=== PATIENT | female | born 1945 | race Hispanic/Latino ===

== ENCOUNTER 2017-06-03 12:19 | Outpatient (CLI) | payer MEDICARE, BC ==
[2017-06-03 13:55] LABS: Hematocrit 38.7 % (36.0-47.0); Mean Platelet Volume 6.4 fL (7.4-10.4)
== END 2017-06-03 12:20 | disposition home or self-care (01) ==
LOC: LABBT 12:19
PROVIDERS: ATTEND Obstetrics & Gynecology
DX: Z01.812 Encounter for preprocedural laboratory examination (principal); N81.6 Rectocele
CPT/HCPCS: 85027; 86850; 86900; 86901; 93005; 93010

== ENCOUNTER 2017-06-08 07:06 | Observation (INO) | payer MEDICARE, BC ==
--- NOTE | 2017-06-03 13:03 | HP ---
She is scheduled for surgery on 06/08/2017 HISTORY OF PRESENT ILLNESS: Ms. Lucas is a 71-year-old female who has been having i ncreasing problems related to a rectocele of vagina. She is having issues with needing to splint to have bowel movements and also fecal swelling due to incomplete evacuation. She has no current urinar y tract, genuine stress incontinence issues or any other pelvic defect complaints. PAST MEDICAL HISTORY: Chronic hypertension, hyperlipidemia, and allergic rhinitis. PAST SURGICAL HISTORY: She has had a previous surgical history including tonsillectomy, carpal tunne l repair and knee replacement. CURRENT MEDICATIONS: Alendronate 70 mg weekly, Cymbalta 60 mg daily, fluticasone nasal spray 2 spray s nasally daily, losartan/hydrochlorothiazide 100/25 mg p.o. daily, Pravachol 20 mg daily. ALLERGIES: CODEINE. SOCIAL HISTORY: Nonsmoker, nondrinker. FAMILY HISTORY: Noncontributory. PHYSICAL EXAMINATION: VITAL SIGNS: Her blood pressure is 120/80, pulse 86, respirations 16, height 62 inches, weight 218 p ounds with a BMI of 39.9. HEENT: Within normal limits. CHEST: Clear to auscultation. HEART: Regular rate and rhythm. S1, S2 heart sounds, no murmurs, rubs or gallops. ABDOMEN: Soft, nontender, nondistended with no palpable masses. PELVIC: Vulva and vagina had no lesions. She does have a grade 3 rectocele noted. No significant a nterior vault prolapse or uterine prolapse seen. Cervix had no lesions. Uterus was small and nonten sherwin. Adnexa nontender with no masses. ASSESSMENT: This is a 71-year-old female with symptomatic grade 3 rectocele. PLAN: Posterior repair. Risks and benefits of procedure have been discussed in detail and set for s urgery on 06/08/2017.
[2017-06-03 13:05] VITALS: BMI 41.0
[2017-06-08] MEDS ORDERED: CEFAZOLIN/Water 2 GM/20 ML SYRINGE ONE ×2 (07:39→08:59)
[2017-06-08] MEDS ORDERED: Morphine 4 MG/ML Carpuject ONE (08:35)
[2017-06-08] MEDS ORDERED: Fentanyl 100 MCG/2 ML VIAL ONE (08:35)
[2017-06-08] MEDS ORDERED: Lidocaine 1% w/Epinephrine 1:200K 30 ML VIAL ONE (08:46)
--- NOTE | 2017-06-08 11:23 | OP ---
DATE OF PROCEDURE: 06/08/2017 PREOPERATIVE DIAGNOSIS: A 71-year-old female with grade 3 rectocele, symptomatic. POSTOPERATIVE DIAGNOSIS: A 71-year-old female with grade 3 rectocele, symptomatic. PROCEDURE PERFORMED: Posterior repair. SURGEON: Gracie Hernandez M.D. HEAVY FORGER SURGEON: Alexis Allan M.D. ANESTHESIA: General. ESTIMATED BLOOD LOSS: 25 mL COMPLICATIONS: None. COUNTS: Correct x2. ANTIBIOTICS: Two grams Ancef manager distribution to the operating room. PATHOLOGY: None. FINDINGS: 1. Grade 3 rectocele defect initially noted on exam under anesthesia with reduction of hernia postop eratively. 2. No evidence of suture placement through the rectal mucosa post-procedure rectal check. DISPOSITION: To the recovery room stable. DESCRIPTION OF OPERATIVE PROCEDURE: The patient previously received informed consent in regards to jv llanes. She was taken back to the operating room where she received a general anesthetic agent witho ut complications, placed in the dorsal lithotomy position with the use of George stirrups. She was pr epped and draped in usual sterile fashion. Roger catheter was placed. Exam under anesthesia was per formed with the previously mentioned findings. At this time, two Allis clamps were placed in the 5 a nd 7 o'clock position. The posterior vaginal mucosa was infiltrated with 1% lidocaine with epinephri ne towards the reflection of the cervix. A midline incision was made in the posterior introitus del rio ied out 1.5 cm from the cervix. Allis clamps were placed on the edges of the posterior vaginal mucos a incision sites. The rectum and the endopelvic fascia was then dissected sharply and bluntly from t he rectal mucosa, reducing the rectocele defect. The most proximal portion of the endopelvic fascia was then isolated and sutures were placed with 0 Vicryl suture, repairing the rectocele defect. Inte rrupted wljqxk-rq-yrhuk sutures of 0 Vicryl then placed starting proximally and working distally towa rds the vaginal introitus reducing the rectocele defect. This has been performed and additional sutu res were placed reinforcing of reapproximation the fascia in the midline for more stability and the r epair line. At this time, the uppermost portion of the posterior vaginal mucosa was closed with 2-0 Vicryl incorporating some of the endopelvic fascia reading the space. Interrupted [id number] ht stitches were carried down in this fashion for hemostasis of the posterior vaginal mucosa. Rectal exam was then performed and no evidence of any suture placement through the rectal mucosa noted and the defect repair appeared adequate. A moistened Kerlix packing was placed and the patient was awake saadia from anesthesia and transferred to the recovery room in stable condition.
[2017-06-08] MEDS ORDERED: Ibuprofen 800 MG TAB PO PRN (14:04)
[2017-06-08] MEDS ORDERED: Ondansetron HCl/PF 4 MG/2 ML Vial IVP PRN (14:04)
[2017-06-08] MEDS ORDERED: Acetaminophen 500 MG TAB PO PRN (14:04)
[2017-06-08] MEDS ORDERED: Morphine PF 1 MG/ML SYR IV PRN (14:05)
[2017-06-08] MEDS ORDERED: MORPHINE 10 MG/ML SYRINGE IV PRN (14:06)
[2017-06-08] MEDS: Sodium Chloride 0.9% 1,000 ML IV SCH ×2 (14:09→23:15)
[2017-06-08 15:13] LABS: Hematocrit 35.5 % (36.0-47.0); Mean Platelet Volume 6.3 fL (7.4-10.4); Red Blood Cell (RBC) Count 3.73 mill/uL (4.20-5.40); White Blood Cell (WBC) Count 21.5 thou/uL (4.8-10.8)
[2017-06-08] MEDS ORDERED: Hydrocortisone Sod Succ/PF 100 mg/2 ml Vial IVP SCH (15:15)
[2017-06-08 15:28] LABS: Band 16 % (5-11); Neutrophil 69 % (42-75); Polychromasia SLIGHT = 2-3 cells (100X) (0-2/hpf); Reactive Lymphocytes 1 % (0-10)
[2017-06-08 15:36] LABS: ALT (SGPT) 10 U/L (8-55); AST (SGOT) 13 U/L (5-34); Alkaline Phosphatase 73 U/L (40-150); Anion Gap 13 mmol/L (10-20); BUN (Urea Nitrogen) 14 mg/dL (9.8-20.1); Bilirubin, Total 0.5 mg/dL (0.2-1.2); Calc. Creatinine Clearance 81 mL/min (70-130); Calcium 8.5 mg/dL (7.8-10.44); Carbon Dioxide 25 mmol/L (23-31); Chloride 102 mmol/L (98-107); Estimated GFR-MDRD 54; Globulin 2.9 g/dL (2.4-3.5); Protein, Total 6.2 g/dL (6.0-8.3)
[2017-06-08 15:41] LABS: Troponin I Less than 0.010 ng/mL (< 0.028)
[2017-06-08] MEDS ORDERED: Insulin Regular 300 UNITS/3 ML VIAL SC PRN (16:06)
[2017-06-08] MEDS ORDERED: Dextrose 5% in Water 1,000 ML IV PRN (16:06)
[2017-06-08] MEDS ORDERED: Dextrose 50% Abboject 50 ML SYRINGE SLOW IVP PRN (16:06)
[2017-06-08] MEDS ORDERED: diphenhydrAMINE 50 MG/ML VIAL ONE (16:22)
[2017-06-08] MEDS ORDERED: Ketorolac Tromethamine 30 MG/ML VIAL ONE (16:22)
[2017-06-08] MEDS ORDERED: PHENYLEPHRINE-NS 100 MCG/ML 10 ML SYRINGE ONE (16:22)
[2017-06-08] MEDS ORDERED: Ondansetron HCl/PF 4 MG/2 ML Vial ONE (16:22)
[2017-06-08] MEDS ORDERED: Metoclopramide HCl 10 MG/2 ML VIAL ONE (16:22)
[2017-06-08] MEDS ORDERED: Lidocaine 1% PF 5 ML VIAL ONE (16:22)
[2017-06-08] MEDS ORDERED: Propofol 200 MG/20 ML VIAL ONE (16:22)
--- NOTE | 2017-06-08 16:33 | PRG ---
DATE OF SERVICE: 06/08/2017 TIME OF DICTATION: 15:53 p.m. Recently ludwin mederos was called in the room for low blood pressures for which I was called to evaluate. At the time I was entering the room, there were already many people there to assist with evaluation and resuscitative measures as indicated. Patient was lying supine in her bed, appeared to be in no acute distress, was alert and oriented, and cooperative. Patient declined any chest pain, any significant shortness of breath or pain. She does reports that she falls asleep easily. The patient is immediately postop a vaginal wall repair. I spoke with Dr. Hernandez who reports that the surgery was uncomplicated with minimal blood loss. Upon entry to the room, patient had blood pressures in the 60s/40s. IV fluids were being bolused and we milagros blood for cardiac enzymes, BNP, CBC and CMP. Chest x-ray was ordered. Pelvic ultrasound was ordered for possibility of concealed hematoma given the nature of her surgery. Patient reports that in 2 previous surgeries, she remembers having a transient period of very low blood pressures as well. She denies any history of Zachariah's disease or any symptoms thereabouts. She does take prednisone daily, but reports only 1 mg 3 times a day, confirmed the dosage several times by mouth verbally from the patient, but the patient does not have her medications currently with her. PHYSICAL EXAMINATION: VITAL SIGNS: Repeat blood pressures after IV bolus came up into the 90 systolic , 91/46. Her pulse is in the 80s, temperature 98.2, respiratory rate is 17, satting 93% on 2 liters nasal cannula. LUNGS: Clear. HEART: Difficult to evaluate due to habitus. ABDOMEN: Soft and obese. RECTAL: On vaginal exam, the patient is noted to have a dry kandi pad with a packing that was also palpated dry, did not have any bleeding visible. Patient is not having any unusual pain. LABORATORY STUDIES: White count 21.5, hemoglobin 11.2, hematocrit 35.5, platelets of 189,000. Her neutrophil percentage is 69. Sodium is 135, potassium 4.6, chloride 102, BUN is 14, creatinine 1.02, glucose is 146. LFTs within normal limits. Troponin is less than 0.010. BNP is 48. CK-MB 1.2. All within normal limits. EKG showed sinus rhythm. We are awaiting the final results of the chest x-ray. Preliminary review by myself did not show any signs of cardiomegaly. Pelvic ultrasound is pending, looking for concealed hematoma. ASSESSMENT AND PLAN: The patient is a 71-year-old female who is immediate postop a vaginal wall repair by Dr. Hernandez with an uncomplicated surgical course PAST MEDICAL HISTORY: Significant for diabetes and rheumatoid arthritis. She has no acute findings. At this time, concerning for any acute cardiac event or PE. We have bolus to a liter and a half of fluid. Her pressures at this time are stable. We will be monitoring her urine output and patient has been given 50 mg of hydrocortisone with an order of 25 mg every 8 hours during the course of her stay. Patient is stable at this time. I have given report to her primary LINEMAN Dr. Hernandez who will be coming to see her after she is done with clinic. We will reevaluate later this afternoon. addendum. Upon reevaluation pt remains stable, alert, talkative and without distress. All finding were negative for acute cardiac event, blood loss, electrolyte abnormality. vital signs stable and normal. MTDD
--- NOTE | 2017-06-08 17:09 | RAD ---
PORTABLE CHEST 1 VIEW: Date: 06/08/17 Time: 1519 hours HISTORY: Code Green. FINDINGS/IMPRESSION: The heart is enlarged. The lungs are well expanded without lobar consolidation, pneumothorax, christian p ulmonary edema, or large effusions. POS: [facility]
--- NOTE | 2017-06-08 18:09 | EKG ---
Test Reason : CODE GREEN Blood Pressure : / mmHG Vent. Rate : 102 BPM Atrial Rate : 102 BPM P-R Int : 154 ms QRS Dur : 082 ms QT Int : 356 ms P-R-T Axes : 033 061 001 degrees QTc Int : 463 ms Sinus tachycardia Otherwise normal ECG When compared with ECG of 03-JUN-2017 13:11, (Unconfirmed) Nonspecific T wave abnormality no longer evident in Anterior leads Confirmed by SONDRA CERVANTES ([id number]) on 06/08/2017 6:09:45 PM Referred By: BYRON Confirmed By:SONDRA CERVANTES
--- NOTE | 2017-06-08 18:41 | ULT ---
PELVIC ULTRASOUND LIMITED: History: Hematoma post-surgery. Patient with history of pelvic pain. Technique: Multiple longitudinal and transverse images of the pelvis obtained using a multihertz curv ilinear transabdominal transducer. Real-time, color flow, and spectral waveform doppler analysis was used to evaluate the pelvis. FINDINGS: The uterus measures 8.7 x 3.4 x 5.5 cm. No definite evidence of uterine abnormality is seen. The left ovary is not visualized. The right ovary is seen and measures 2.1 x 2.7 x 3.8 cm. Normal blood flow is seen in the right ovary . There appears to be a Roger type catheter in the bladder. IMPRESSION: No uterine abnormality seen. POS: [facility]
[2017-06-08] MEDS: Hydrocortisone Sod Succ/PF 100 mg/2 ml Vial IVP SCH (23:03)
[2017-06-09] MEDS: Hydrocortisone Sod Succ/PF 100 mg/2 ml Vial IVP SCH (05:12)
[2017-06-09] MEDS: Sodium Chloride 0.9% 1,000 ML IV SCH (06:46)
[2017-06-09 08:28] VITALS: BP 164/75; TEMP 97.8
== END 2017-06-09 10:16 | disposition home or self-care (01) ==
LOC: SDC 07:06 → 3SE 10:45
PROVIDERS: ADMIT Obstetrics & Gynecology; ATTEND Obstetrics & Gynecology
PROC: 0JQC0ZZ Repair Pelvic Region Subcutaneous Tissue and Fascia, Open Approach (ICD-10-PCS; principal; 2017-06-08)
DX: N81.6 Rectocele (principal); I10 Essential (primary) hypertension; E78.5 Hyperlipidemia, unspecified; J30.9 Allergic rhinitis, unspecified; Z91.041 Radiographic dye allergy status; Z88.5 Allergy status to narcotic agent; Z98.42 Cataract extraction status, left eye; Z79.899 Other long term (current) drug therapy; Z98.41 Cataract extraction status, right eye; Z90.49 Acquired absence of other specified parts of digestive tract; Z96.653 Presence of artificial knee joint, bilateral; Z98.890 Other specified postprocedural states
CPT/HCPCS: 57250; 71010; 76857; 80053; 82553; 82962 ×2; 83880; 84484; 85025; 93005; 96374; 96376 ×2; G0378; 36416; 93010; A4216; J0131; J1200; J1720; J1885; J2001; J2270; J2405; J2704; J2765; J3010

== ENCOUNTER 2017-07-14 15:01 | Outpatient (CLI) | payer BC | END 2017-07-14 15:02 | disposition home or self-care (01) | LOC: DTY/OP 15:01 | PROVIDERS: ATTEND Surgery | DX: E78.5 Hyperlipidemia, unspecified (principal); E11.9 Type 2 diabetes mellitus without complications; G47.30 Sleep apnea, unspecified; I10 Essential (primary) hypertension | CPT/HCPCS: 97802 ==

== ENCOUNTER 2017-12-31 11:01 | Outpatient (CLI) | payer MEDICARE, BC | END 2017-12-31 11:02 | disposition home or self-care (01) | LOC: BICMAMMO 11:01 | PROVIDERS: ATTEND Specialist | DX: Z12.31 Encounter for screening mammogram for malignant neoplasm of breast (principal); R92.1 Mammographic calcification found on diagnostic imaging of breast | CPT/HCPCS: 77063; 77067 ==

== ENCOUNTER 2018-10-07 16:48 | Observation (INO) | payer MEDICARE, BC ==
[2018-10-07 17:19] LABS: #Basophils 0.1 thou/uL (0.0-0.2); #Eosinphils 0.2 thou/uL (0.0-0.7); #Monocytes 0.8 thou/uL (0.11-0.59); #Neutrophils 3.6 thou/uL (1.40-6.50); %Eosinophils 2.8 % (0.0-10.0); %Lymphocytes 39.4 % (21.0-51.0); %Monocytes 10.1 % (0.0-10.0); %Neutrophils 46.7 % (42.0-75.0); Hemoglobin 13.5 g/dL (12.0-16.0); Mean Corpuscular HGB CONC 32.5 g/dL (32.0-36.0); Mean Corpuscular Hemoglobin 33.5 pg (27.0-31.0); Mean Platelet Volume 6.7 fL (7.4-10.4); Platelet Count 132 thou/uL (130-400); RBC Distribution Width 12.9 % (11.5-14.5); Red Blood Cell (RBC) Count 4.04 mill/uL (4.20-5.40); White Blood Cell (WBC) Count 7.6 thou/uL (4.8-10.8)
[2018-10-07 17:25] LABS: PTT 24.1 SEC (22.9-36.1); Prothrombin Time 13.3 SEC (12.0-14.7)
--- NOTE | 2018-10-07 17:28 | CT ---
FHead CT without contrast 10/07/2018: COMPARISON: 08/05/2011 HISTORY: Stroke alert, syncope, fall TECHNIQUE: Axial CT imaging at 5 mm intervals from vertex through skull base without contrast FINDINGS: The imaged paranasal sinuses and mastoid air cells well-aerated. No displaced calvarial fra cture. No intracranial hemorrhage, midline shift, mass effect, or ventricular enlargement. Multifocal periventricular, deep, and subcortical white matter hypodensity, evidence of small vessel disease.A punctate focus of calcification is seen on image 6 on the left which could represent vascular calcifi cation in the region of proximal M2 branches. IMPRESSION: Stable head CT. Small vessel disease noted. No intracranial hemorrhage. Results called to Dr. Tapia at 5:24 PM 10/07/2018. If there is clinical concern for an acute infarct ion, brain MRI is advised. If there is clinical concern for intra-arterial thrombus, CT angiogram of the head recommended.
[2018-10-07 17:35] LABS: ALT (SGPT) Less than 7 U/L (8-55); AST (SGOT) 16 U/L (5-34); Albumin 3.8 g/dL (3.4-4.8); Alkaline Phosphatase 56 U/L (40-150); Anion Gap 12 mmol/L (10-20); BUN (Urea Nitrogen) 15 mg/dL (9.8-20.1); Bilirubin, Total 0.3 mg/dL (0.2-1.2); Calc. Creatinine Clearance 0 mL/min (70-130); Calcium 8.9 mg/dL (7.8-10.44); Carbon Dioxide 30 mmol/L (23-31); Chloride 102 mmol/L (98-107); Estimated GFR-MDRD 62; Globulin 2.9 g/dL (2.4-3.5); Glucose 109 mg/dL (83-110); Potassium 4.1 mmol/L (3.5-5.1); Protein, Total 6.7 g/dL (6.0-8.3); Sodium 140 mmol/L (136-145)
--- NOTE | 2018-10-07 17:41 | RAD ---
FPortable chest radiograph: 10/07/2018 COMPARISON: 06/03/2010 HISTORY:Hypertension, collapse, pain FINDINGS: Stable prominence of the cardiac silhouette. Perihilar prominence is noted, suggesting stab le vascular enlargement. There is no pneumothorax or large volume pleural effusion. No lobar consolid ation or alveolar edema. Mild pulmonary vascular congestion noted in the perihilar regions. IMPRESSION: Pulmonary vascular congestion with no focal consolidation or alveolar edema. If symptoms persist, follow-up PA and lateral imaging of the chest recommended.
[2018-10-07] MEDS ORDERED: Aspirin Chewable 81 MG TAB ONE (18:55)
[2018-10-07] MEDS ORDERED: Acetaminophen 325 MG TAB PO PRN (23:03)
[2018-10-07] MEDS ORDERED: Insulin Regular 300 UNITS/3 ML VIAL SC PRN (23:07)
[2018-10-08 00:01] LABS: Troponin I Less than 0.010 ng/mL (< 0.028)
[2018-10-08 00:12] VITALS: BMI 37.0
--- NOTE | 2018-10-08 02:29 | HP ---
CHIEF COMPLAINT ON ADMISSION: Syncope. HISTORY OF PRESENT ILLNESS: The patient is a 73-year-old female who states along with her spouse that she felt unusual since early this morning. She could not put her finger on any specific thing, only that she did not feel right. She was excessively sleepy through the day and tired and then after visiting with her sister, she was getting out of the car, had to reach for her cane, and simply fell backwards. She states that she never lost consciousness and her agrees that once he looked over and talked with her, she was coherent and was alert when he was speaking with her, however, she does not have any memory of her fall. She fell mostly on the right side and still has some right-sided soreness in her shoulder , neck area, and down her right arm. She denies any history of chest pain, shortness of breath. No seizure activity. She is certain that she did not take her medicine incorrectly this day, but has been raises a concern for that issue. There is concern that there may be a cardiac arrhythmia involved and so she is admitted to go to telemetry and watch for such. PAST MEDICAL HISTORY: Significant for hypothyroidism, Parkinson disease, depression, tsh-rzcrmkc-sikszbamw diabetes mellitus type 2, bipolar psychiatric disorder, hypertension, and environmental allergies. She also has dyslipidemia and arthritis, and osteopenia. PAST SURGICAL HISTORY: Includes bilateral knee replacement, bilateral carpal tunnel release, Lap-Band surgery in 2010 and Lap-Band removal in 2011, cholecystectomy , and tonsillectomy. PSYCHIATRIC HISTORY: As mentioned above, includes bipolar disorder. SOCIAL HISTORY: She is . Denies alcohol or drug use, and has never smoked. She lives with her . ALLERGIES: HER ALLERGIES ARE TO CODEINE, IODINE, TRAMADOL, AND ZUCCHINI. MEDICATIONS: At the time of admission include; 1. Levothyroxine 75 mcg daily. 2. Sinemet 10/100 three tabs q.a.m. 3. Duloxetine 60 mg one p.o. daily. 4. Prednisone 1 mg taken three times a day. 5. Farxiga 5 mg once a day. 6. Divalproex 500 mg three tabs taken once a day. 7. Boniva 150mg q month. 8. Terazosin 5 mg once a day. 9. Vitamin D3 1000 units daily. 10. Vitamin B12 100 mcg or 5000 international units daily. 11. Aspirin 81 mg daily. 12. Goddard-3 OTC capsule once a day. 13. Zyrtec 10 mg once a day. REVIEW OF SYSTEMS: GENERAL: Admits to overall malaise and weakness. Denies fever, chills, or cough. HEENT: Denies any sores or lesions in the ear, nose, or throat with no drainage from any of these. CHEST: Denies shortness of breath or cough. CARDIOVASCULAR: Denies chest pain or palpitations. ABDOMEN: Did have some nausea early in the morning, but no vomiting or diarrhea. : Denies dysuria, frequency, pain, blood in urine or stool. EXTREMITIES: There is mild lower extremity edema. Otherwise, normal range of motion demonstrated. No clubbing, cyanosis, or edema. NEUROLOGIC: Cranial nerves are intact. Gait and cerebellar function are slowed , but appropriate. Sensory exam is grossly intact. Mental status shows slightly slowed mentation. Cranial nerves are intact. Deep tendon reflexes are 1 bilaterally. Gordon Stroke Scale was at 0. SKIN: No acute rashes or lesions. PHYSICAL EXAMINATION: At the time of admission; VITAL SIGNS: Blood pressure 157/91, pulse is 80, respirations 17, temperature 97.9. Pain scale at 7, 100% room O2 on room air. She has a GCS of 15. NIHSS is zero. GENERAL: This is an obese, oriented, cooperative, alert female who looks her stated age. HEENT: Normocephalic, atraumatic. Pupils with diminished reactivity to light at 2-3 mm each. Extraocular muscles are intact. Arcus senilis bilaterally. TMs, nares, and pharynx are clear. NECK: Supple. Trachea midline. No bruits. No mass. CHEST: Clear to auscultation. HEART: Regular rate and rhythm without murmur. BREASTS: Deferred. ABDOMEN: Soft, nontender without organomegaly. : Deferred. EXTREMITIES: Without clubbing, cyanosis, or edema. There is just trace edema in the lower extremities bilaterally. SKIN: No acute rashes or lesions. NEUROLOGIC: Cranial nerves are intact. Gait and cerebellar function are appropriate. Sensory exam is grossly intact. Mental status shows slightly slowed mentation, but is otherwise nonfocal. LABORATORY DATA: Lab work thus far shows WBCs 7.6, hemoglobin 13.5 and hematocrit 41.6, platelets at 132. Sodium was at 140, potassium 4.1, chloride 102, CO2 is 30, BUN is 15, creatinine 0.9 with a GFR of 62, glucose 109. Liver functions normal. Cardiac enzymes negative. CT of the head returned, no acute findings. Chest x- ray showed chronic changes of pulmonary vascular congestion, but no acute findings. ASSESSMENT: 1. Syncopal episode, yet to be determined. 2. Parkinson disease. 3. Bipolar disorder. 4. Hypothyroidism. PLAN: We will observe the patient on telemetry. Do serial cardiac enzymes. We will get an echocardiogram of her heart along with cardiac consultation and we will serially re-evaluate the patient. She will be placed on a consistent carb diet with fingerstick glucoses. Job ID: [id number] [facility]
[2018-10-08] MEDS: Levothyroxine Sodium 75 MCG TAB PO SCH (05:44)
[2018-10-08 07:13] LABS: Hemoglobin A1c 5.4 % (4.0-6.0)
[2018-10-08 07:17] LABS: Cardiac Risk 2.9 (Less than 4.5)
[2018-10-08 07:20] LABS: Troponin I Less than 0.010 ng/mL (< 0.028)
[2018-10-08] MEDS: Aspirin Chewable 81 MG TAB PO SCH (08:40)
[2018-10-08] MEDS: Carbidopa/Levodopa 10-100 mg Tablet PO SCH (08:41)
[2018-10-08] MEDS: predniSONE 1 MG TAB PO SCH ×3 (08:41→21:24)
[2018-10-08] MEDS: DULoxetine 60 MG CAP PO SCH (08:41)
[2018-10-08 08:51] LABS: Anion Gap 16 mmol/L (10-20); BUN (Urea Nitrogen) 17 mg/dL (9.8-20.1); Calc. Creatinine Clearance 90 mL/min (70-130); Calcium 8.5 mg/dL (7.8-10.44); Carbon Dioxide 26 mmol/L (23-31); Chloride 104 mmol/L (98-107); Estimated GFR-MDRD 68; Glucose 75 mg/dL (83-110); Potassium 3.8 mmol/L (3.5-5.1); Sodium 142 mmol/L (136-145)
[2018-10-08] MEDS ORDERED: FARXIGA 5 MG FS SCH (09:00)
[2018-10-08] MEDS ORDERED: Ondansetron PF 4 MG/2 ML Vial IVP SCH (09:45)
--- NOTE | 2018-10-08 12:27 | CON ---
DATE OF CONSULTATION: 10/08/2018 REASON FOR CONSULTATION: Syncope. HISTORY OF PRESENT ILLNESS: Ms. Lucas is a 73-year-old patient seen by Dr. Tee, Cardiology, who was admitted on this occasion with syncope. Ms. Lucas states she was with her yesterday. They had bought some mcghee. She got out of the passenger seat and went around to the back. Her had unloaded the mcghee out of the trunk. The patient felt weak and fatigued and lost consciousness. He said when she aroused, she said she had trouble getting up. She was brought here for further evaluation. She did not have chest pain or pressure. PAST MEDICAL HISTORY: 1. She has history of cauda equina, compression and requiring surgical decompression in 2016. 2. She has history of Parkinson disease and is on medicine. 3. Hypertension. MEDICATIONS: As an outpatient included: 1. Carbidopa/levodopa. 2. Aspirin. 3. Terazosin 5 mg at bedtime. REVIEW OF SYSTEMS: CONSTITUTIONAL: No significant weight gain or loss. HEENT: Vision, no changes. Hearing, no changes. PULMONARY: No cough or wheezing. GASTROINTESTINAL: She is nauseated and vomiting. SKIN: No rashes. NEUROLOGIC: No unilateral weakness or numbness. PSYCHIATRIC: No unusual depression or anxiety. PHYSICAL EXAMINATION: GENERAL: This is a short-statured woman, 5 feet 2 inches tall, 202 pounds. LUNGS: Clear. CARDIAC: Normal S1, normal S2. ABDOMEN: Soft and nontender. She is obese. EXTREMITIES: No clubbing or cyanosis. There is no edema. SKIN: Warm and dry. IMAGING: EKG, sinus rhythm. There is some T-wave inversions in the inferior leads really identical to the previous description from 2016. The patient was having recurrent retching and she did have some pauses during this retching. ASSESSMENT: 1. Syncopal episode, probably orthostatic hypotension. 2. Nausea and vomiting. PLAN: 1. Give her doses of Zofran. 2. Stress testing will be done for completeness. Continue to monitor. Job ID: [id number]
--- NOTE | 2018-10-08 15:34 | PRG ---
DATE OF SERVICE: 10/08/2018 ADDENDUM: Lance had some pauses today after vomiting and retching. This did not appear to be primary, but more secondary to her vomiting. She is undergoing stress testing today. If that is okay, it is okay to me to be released home to follow up with Dr. Tee, her research program assistant. I would recommend stopping the Hytrin and change into her amlodipine 5 mg a day in view of her syncopal episode with sounds like orthostatic hypotension. The other risk factor she has for orthostatic hypotension is Parkinson disease, but I think most likely this is the etiology of her symptoms. She could follow up with Dr. Tee as an outpatient. Job ID: [id number]
[2018-10-08] MEDS ORDERED: ADENOSINE 60 MG/20 ML VIAL ONE (16:23)
[2018-10-08] MEDS ORDERED: Terazosin HCl 5 MG CAP PO SCH (21:00)
[2018-10-09] MEDS: Levothyroxine Sodium 75 MCG TAB PO SCH (04:01)
[2018-10-09 07:36] LABS: Anion Gap 8 mmol/L (10-20); BUN (Urea Nitrogen) 14 mg/dL (9.8-20.1); Calc. Creatinine Clearance 102 mL/min (70-130); Calcium 8.8 mg/dL (7.8-10.44); Carbon Dioxide 34 mmol/L (23-31); Chloride 102 mmol/L (98-107); Estimated GFR-MDRD 79; Glucose 85 mg/dL (83-110); Potassium 4.5 mmol/L (3.5-5.1); Sodium 139 mmol/L (136-145)
[2018-10-09] MEDS ORDERED: Amlodipine 5 MG TAB PO SCH (09:00)
[2018-10-09] MEDS: Carbidopa/Levodopa 10-100 mg Tablet PO SCH (09:28)
[2018-10-09] MEDS: Aspirin Chewable 81 MG TAB PO SCH (09:28)
[2018-10-09] MEDS: DULoxetine 60 MG CAP PO SCH (09:29)
[2018-10-09] MEDS: predniSONE 1 MG TAB PO SCH ×2 (09:29→16:33)
--- NOTE | 2018-10-09 10:45 | NM ---
[facility] Cardiac myocardial perfusion SPECT Ejection fraction study Wall motion study: 10/09/2018 HISTORY: 73-year-old female with hypertension, diabetes mellitus, and dyslipidemia, presents with chest pain Dr. Medley discussed the findings suspicious for ischemia with Dr. Contreras at 10:20 AM on 10/09/2018 TECHNIQUE: Number of days: 2 Rest study: 29.9 mCi technetium 99m-sestamibi. Pharmacologic stress: 51.4 mg of adenosine Stress study: 30.1mCi technetium 99m-sestamibi. FINDINGS: Cardiac (myocardial perfusion) SPECT: Patient unable to elevate arms. There is an apparent reversible defect at the inferior lateral wall. Ejection fraction study: Left ventricular ejection fraction is calculated as 89%. It is uncertain how accurate this is. Wall motion; Normal IMPRESSION: Suspicious for reversible left ventricular myocardial ischemia at inferolateral wall.
[2018-10-09] MEDS ORDERED: Ondansetron ODT 4 MG TAB PO PRN (11:16)
[2018-10-09] MEDS ORDERED: Ondansetron PF 4 MG/2 ML Vial IVP PRN (11:16)
--- NOTE | 2018-10-09 11:38 | PDOC.CTH ---
Cardiology Progress Note - Subjective C/O nausea today. Denies any dizziness when up to BR. Wants to get up and walk. Stress showed inferolateral ischemia, but patient unable to raise arms for imaging. - Objective Vital Signs Temp Pulse Resp BP BP BP Pulse Ox 10/09/18 11:32 98.1 F 86 16 131/66 92 L 10/09/18 09:28 80 141/73 H 10/09/18 07:50 97.6 F 80 18 141/73 H 92 L 10/09/18 03:59 97.9 F 68 20 143/68 H 97 Weight 201 lb 3.2 oz 10/08/18 10/09/18 10/10/18 06:59 06:59 06:59 Intake Total 820 Output Total 500 1700 Balance -500 -880 - Physical Examination General/Neuro: alert & oriented x3 Neck: no JVD present Lungs: CTA Heart: RRR Abdomen: NT/ND - Labs Result Diagrams: 10/07/18 17:09 10/09/18 07:02 Troponin/CKMB Troponin I Less than 0.010 ng/mL (< 0.028) 10/08/18 04:56 - Assessment/Plan 1. s/p syncopal episode 2. N/V 3. Abnormal CL 4. Parkinson's Dz Regarding syncope, most likely orthostatic in nature. Patient reports no symptoms of dizziness or lightheadedness in last 24 hours. Denies any CP or SOB. Wants to get up and walk in hdz. Discussed stress findings and options of LHC here vs following up to discuss with Randal. Patient wants to f/u with Randal and already has an appt set in 2 weeks. Since she is asymptomatic, negative cardiac enzymes and has no new EKG changes I feel this is reasonable. She did have some jeffrey associated with vomiting and wretching. An outpatient EVR is reasonable as well and this can be arranged through Dr. Tee.
[2018-10-09 16:00] VITALS: BP 112/70; TEMP 98.2
[2018-10-09 17:16] LABS: Bilirubin Negative (Negative); Blood, Urine Large (Negative); Clarity CLOUDY (Clear); Glucose, Urine (Dipstick) >=1000 mg/dL (Negative); Leukocyte Large (Negative); Nitrite Negative (Negative); Protein, Urine (Dipstick) Trace mg/dL (Neg-Trace); Specific Gravity, Urine 1.027 (1.002-1.036)
[2018-10-09 17:17] LABS: Bacteria/HPF 4+ HPF (None Seen)
[2018-10-09 17:24] LABS: Pathc Cast-AUWi Flag 3.12 (0-2.49)
[2018-10-09 17:34] LABS: Hyaline Casts/LPF NONE SEEN LPF (0-3 Hyaline); Other Casts/LPF None Seen LPF (0-3 Hyaline); Squamous Epithelial 0-3 HPF (0-3)
--- NOTE | 2018-10-14 14:28 | STRESS ---
Acquisition Time: 2018-10-08 11:14:02 Total Exercise Time: 00:04:00 Test Indications: CHEST PAIN Medications: Protocol: ADENOSINE Max HR: 093 BPM 62% of Pred: 149 BPM Max BP: 128/072 mmHG Max Work Load: 1.0 METS RESTING ECG: NORMAL SINUS RHYTHM AT 81 BPM WITH NON-SPECIFIC ST SEGMENT AND T-WAVE CHANGES SYMPTOMS: NONE NORMAL BP RESPONSE ECTOPY: NONE ECG STRESS: NO SIGNIFICANT CHANGES INTERPRETATION: INDETERMINATE ECG/AWAIT NUCLEAR IMAGES FOR DEFINITIVE DIAGNOSIS Confirmed by ИРИНА CHAU ELLEN ([id number]) on 10/14/2018 2:28:05 PM Referred By: MD Svetlana RMASEY Confirmed By:JHON CHAU PA-C
== END 2018-10-09 17:30 | disposition home or self-care (01) ==
LOC: ERS 16:48 → 2SW 22:36
PROVIDERS: ADMIT Specialist; ATTEND Specialist
DX: R55 Syncope and collapse (principal); G20 Parkinson's disease; F31.9 Bipolar disorder, unspecified; E03.9 Hypothyroidism, unspecified; I10 Essential (primary) hypertension; E11.9 Type 2 diabetes mellitus without complications; E78.5 Hyperlipidemia, unspecified; M19.90 Unspecified osteoarthritis, unspecified site; M85.80 Other specified disorders of bone density and structure, unspecified site; Z96.653 Presence of artificial knee joint, bilateral; Z98.84 Bariatric surgery status; Z90.49 Acquired absence of other specified parts of digestive tract; Z90.89 Acquired absence of other organs; Z88.5 Allergy status to narcotic agent; Z91.018 Allergy to other foods; Z91.041 Radiographic dye allergy status; Z79.52 Long term (current) use of systemic steroids; Z79.82 Long term (current) use of aspirin; Z79.899 Other long term (current) drug therapy
CPT/HCPCS: 70450; 71045; 78452; 80048 ×2; 80053; 80061; 80164; 81001; 82550; 82962 ×3; 83036; 84443; 84484 ×3; 85025; 85610; 85730; 87077; 87086; 87186; 93005; 93017; 93306; 96374; 99285; A9500; G0378 ×2; 36415; 36416; J0153; J1642; J2405; Q0162

== ENCOUNTER 2019-02-10 22:38 | Emergency (ER) | payer MEDICARE, BC ==
[2019-02-10] MEDS ORDERED: Adacel (T-DAP) 0.5 ML SYRINGE ONE (23:33)
[2019-02-10 23:50] LABS: Hemoglobin 13.7 g/dL (12.0-16.0); Mean Corpuscular HGB CONC 32.5 g/dL (32.0-36.0); Mean Corpuscular Hemoglobin 33.6 pg (27.0-31.0); RBC Distribution Width 13.5 % (11.5-14.5); Red Blood Cell (RBC) Count 4.07 mill/uL (4.20-5.40); White Blood Cell (WBC) Count 6.1 thou/uL (4.8-10.8)
[2019-02-11 00:07] LABS: Band 2 % (5-11); Eosinophils 3 % (0-10); Lymphocytes 48 % (21-51); MDiff Complete? YES; Mean Platelet Volume 7.1 fL (7.4-10.4); Monocytes 11 % (0-10); Neutrophil 36 % (42-75); Platelet Count 80 thou/uL (130-400); Platelet Morphology Comment Appears Decreased; RBC Morphology Normal
[2019-02-11 00:10] LABS: ALT (SGPT) 7 U/L (8-55); AST (SGOT) 19 U/L (5-34); Albumin 3.5 g/dL (3.4-4.8); Alkaline Phosphatase 45 U/L (40-150); Anion Gap 15 mmol/L (10-20); BUN (Urea Nitrogen) 16 mg/dL (9.8-20.1); Bilirubin, Total 0.3 mg/dL (0.2-1.2); CK (CPK) 38 U/L (29-168); Calc. Creatinine Clearance 0 mL/min (70-130); Calcium 9.1 mg/dL (7.8-10.44); Carbon Dioxide 25 mmol/L (23-31); Chloride 102 mmol/L (98-107); Estimated GFR-MDRD 65; Globulin 2.8 g/dL (2.4-3.5); Glucose 112 mg/dL (83-110); Potassium 4.3 mmol/L (3.5-5.1); Protein, Total 6.3 g/dL (6.0-8.3); Sodium 138 mmol/L (136-145)
[2019-02-11 00:44] LABS: Bacteria/HPF None Seen HPF (None Seen); Bilirubin Negative (Negative); Blood, Urine Negative (Negative); Clarity Turbid (Clear); Glucose, Urine (Dipstick) Greater than 1000 mg/dL (Negative); Leukocyte 500 Leu/uL (Negative); Nitrite Negative (Negative); Protein, Urine (Dipstick) 10 mg/dL (Neg-Trace); Urobilinogen Normal mg/dL (Less than 2); WBC/HPF Greater than 50 HPF (0-3)
[2019-02-11] MEDS ORDERED: cefTRIAXone\\ROCEPHIN 2 GM VIAL ONE (01:09)
--- NOTE | 2019-02-11 07:39 | CT ---
PRELIMINARY REPORT/[facility]/EMERGENCY AFTER HOURS PROCEDURE: EXAM: CT Head Without Contrast EXAM DATE/TIME: 02/11/2019 12:30 AM CLINICAL HISTORY: 73 years old, female; Injury or trauma; Initial encounter; Abrasion; Head, generalized; Patient HX: Lana r 21. 73 y/o F, with h/o parkinson's dz, presents to ED S/P mechanical fall. When asked, PT is unsure as to what occurred. Daughters report that they were told by pt's that she tripped while walking into her home, hitting her head on the knob of the door on fall. TECHNIQUE: Imaging protocol: Computed tomography images of the head without contrast. COMPARISON: No relevant prior studies available. FINDINGS: Brain: Volume loss and chronic small vessel ischemic change. No brain edema. No intracranial hemorrha ge. Ventricles: Normal. No ventriculomegaly. Bones/joints: Unremarkable. No acute fracture. Sinuses: Visualized sinuses are unremarkable. No fluid levels. Mastoid air cells: Visualized mastoid air cells are well aerated. No mastoid effusion. Soft tissues: Unremarkable. IMPRESSION: No acute brain findings. Thank you for allowing us to participate in the care of your patient. Dictated and Authenticated by: Jeremias Deshpande MD 02/11/2019 1:01 AM Central Time ([place] & [place]) FINAL REPORT CT HEAD NONCONTRAST PERFORMED ON AN EMERGENCY BASIS: Date: 02/11/19 Time: 0031 hours HISTORY: Fall. Head injury. COMPARISON: 10/07/18. IMPRESSION: Findings agree with the preliminary report by Dr. Deshpande from [facility]. Chronic-type findings are stable . No acute intracranial abnormalities are demonstrated. POS: [facility]
--- NOTE | 2019-02-11 07:41 | CT ---
PRELIMINARY REPORT/[facility]/EMERGENCY AFTER HOURS PROCEDURE: EXAM: CT Cervical Spine Without Contrast EXAM DATE/TIME: 02/11/2019 12:28 AM CLINICAL HISTORY: 73 years old, female; Injury or trauma; Initial encounter; Abrasion; Patient HX: Er 21. 73 y/o F, wit h h/o parkinson's dz, presents to ED S/P mechanical fall. When asked, PT is unsure as to what occurre d. Daughters report that they were told by pt's that she tripped while walking into her home, hitting her head on the knob of the door on fall. TECHNIQUE: Imaging protocol: Computed tomography images of the cervical spine without contrast. Coronal and sagi ttal reformatted images were created and reviewed. COMPARISON: No relevant prior studies available. FINDINGS: Vertebrae: No acute fracture. Normal alignment. Discs/Spinal canal/Neural foramina: No spinal stenosis. No neural foraminal narrowing. Soft tissues: Unremarkable. Lungs: Lung apices are normal. IMPRESSION: No acute findings. Thank you for allowing us to participate in the care of your patient. Dictated and Authenticated by: Jeremias Deshpande MD 02/11/2019 1:00 AM Central Time ([place] & [place]) FINAL REPORT CT CERVICAL SPINE NONCONTRAST PERFORMED ON AN EMERGENCY BASIS: Date: 02/11/19 Time: 0029 hours HISTORY: Fall. Neck injury. IMPRESSION: Findings agree with the preliminary report by Dr. Deshpande from [facility]. Degenerative changes throughout the cervical spine. No acute osseous abnormalities are demonstrated. POS: [facility]
== END 2019-02-11 02:10 | disposition home or self-care (01) ==
LOC: ERS 22:38
DX: S01.01XA Laceration without foreign body of scalp, initial encounter (principal); N39.0 Urinary tract infection, site not specified; M19.90 Unspecified osteoarthritis, unspecified site; E11.9 Type 2 diabetes mellitus without complications; E78.5 Hyperlipidemia, unspecified; I10 Essential (primary) hypertension; F31.9 Bipolar disorder, unspecified; Z79.52 Long term (current) use of systemic steroids; Z79.899 Other long term (current) drug therapy; Z79.82 Long term (current) use of aspirin; Z23 Encounter for immunization; W01.198A Fall on same level from slipping, tripping and stumbling with subsequent striking against other object, initial encounter; Y92.009 Unspecified place in unspecified non-institutional (private) residence as the place of occurrence of the external cause
CPT/HCPCS: 12001; 36415; 70450; 72125; 80053; 81003; 81015; 82550; 84484; 85025; 87086; 90471; 90715; 93005; 96361; 96365; A4353; J0696

== ENCOUNTER 2020-06-13 12:55 | Outpatient (CLI) | payer MEDICARE, BC ==
--- NOTE | 2020-06-13 13:31 | RAD ---
Right tibia/fibula 2 views: 06/13/2020 COMPARISON: None HISTORY: Injury of the right lower extremity, fall 3 weeks ago FINDINGS: There is a knee arthroplasty present. No evidence for hardware failure no acute fracture or dislocation is appreciated. Vascular calcifications are seen adjacent to the ankle posteriorly. IMPRESSION: No acute findings.
== END 2020-06-13 12:56 | disposition home or self-care (01) ==
LOC: BICRAD 12:55
PROVIDERS: ATTEND Specialist
DX: S89.91XA Unspecified injury of right lower leg, initial encounter (principal)

== ENCOUNTER 2020-12-21 11:54 | Inpatient (IN) | payer BC, MEDICARE ==
[2020-12-21 12:42] LABS: Bacteria/HPF 4+ HPF (None Seen); Bilirubin Negative (Negative); Blood, Urine 2+ (Negative); Clarity Extra Turbid (Clear); Glucose, Urine (Dipstick) Normal (Negative); Ketone, Urine 20 mg/dL (Negative); Leukocyte 500 Leu/uL (Negative); Nitrite 2+ (Negative); Protein, Urine (Dipstick) 70 mg/dL (Neg-Trace); RBC/HPF 21-50 HPF (0-3); Specific Gravity, Urine 1.022 (1.002-1.036); Urobilinogen Normal mg/dL (Less than 2); WBC/HPF Greater than 50 HPF (0-3); pH, Urine 6.5 (5.0-9.0)
[2020-12-21 13:30] LABS: ALT (SGPT) 17 U/L (8-55); AST (SGOT) 31 U/L (5-34); Albumin 3.8 g/dL (3.4-4.8); Alkaline Phosphatase 59 U/L (40-110); Anion Gap 18 mmol/L (10-20); BUN (Urea Nitrogen) 12 mg/dL (9.8-20.1); Bilirubin, Total 0.4 mg/dL (0.2-1.2); Calc. Creatinine Clearance 0 mL/min (70-130); Calcium 9.1 mg/dL (7.8-10.44); Carbon Dioxide 22 mmol/L (23-31); Chloride 105 mmol/L (98-107); Globulin 3.4 g/dL (2.4-3.5); Glucose 151 mg/dL (83-110); Protein, Total 7.2 g/dL (5.8-8.1); Sodium 141 mmol/L (136-145)
[2020-12-21 13:48] LABS: Hemoglobin 12.6 g/dL (12.0-16.0); Mean Corpuscular HGB CONC 32.7 g/dL (32.0-36.0); Mean Corpuscular Hemoglobin 33.5 pg (27.0-31.0); Mean Platelet Volume 7.1 fL (7.4-10.4); Platelet Count 107 thou/uL (130-400); RBC Distribution Width 13.6 % (11.5-14.5); Red Blood Cell (RBC) Count 3.77 mill/uL (4.20-5.40); White Blood Cell (WBC) Count 10.5 thou/uL (4.8-10.8)
[2020-12-21 14:07] LABS: MDiff Complete? YES
[2020-12-21 14:08] LABS: Band 30 % (5-11); Eosinophils 3 % (0-10); Lymphocytes 12 % (21-51); Macrocytosis SLIGHT = 6-15 cells (100X) (0-5/hpf); Monocytes 16 % (0-10); Neutrophil 31 % (42-75); Platelet Morphology Comment Appears Decreased; Polychromasia SLIGHT = 2-3 cells (100X) (0-2/hpf); Reactive Lymphocytes 8 % (0-10)
[2020-12-21 19:37] VITALS: BMI 35.2
[2020-12-21 19:39] LABS: Hemoglobin A1c 5.8 % (4.0-6.0)
[2020-12-21] MEDS ORDERED: Dextrose 50% Abboject 50 ML SYRINGE IVP PRN (20:15)
[2020-12-21] MEDS ORDERED: Insulin Regular 300 UNITS/3 ML VIAL SC PRN (20:15)
[2020-12-21] MEDS ORDERED: Dextrose 5% in Water 1,000 ML IV PRN (20:15)
[2020-12-21] MEDS: predniSONE 1 MG TAB PO SCH (21:16)
[2020-12-21] MEDS: Citalopram 20 MG TAB PO SCH (21:16)
[2020-12-21] MEDS: Carbidopa/Levodopa 10-100 mg Tablet PO SCH (21:16)
[2020-12-21] MEDS: Levothyroxine Sodium 75 MCG TAB PO SCH (21:17)
[2020-12-22] MEDS ORDERED: Levothyroxine Sodium 75 MCG TAB PO SCH (06:00)
[2020-12-22 06:04] LABS: Hemoglobin 12.2 g/dL (12.0-16.0); Mean Corpuscular HGB CONC 33.1 g/dL (32.0-36.0); Mean Corpuscular Hemoglobin 34.2 pg (27.0-31.0); Mean Platelet Volume 6.8 fL (7.4-10.4); Platelet Count 106 thou/uL (130-400); RBC Distribution Width 13.3 % (11.5-14.5); Red Blood Cell (RBC) Count 3.56 mill/uL (4.20-5.40); White Blood Cell (WBC) Count 9.6 thou/uL (4.8-10.8)
[2020-12-22 06:18] LABS: Anion Gap 14 mmol/L (10-20); BUN (Urea Nitrogen) 11 mg/dL (9.8-20.1); Calc. Creatinine Clearance 84 mL/min (70-130); Carbon Dioxide 24 mmol/L (23-31); Chloride 102 mmol/L (98-107); Glucose 141 mg/dL (83-110); Potassium 4.3 mmol/L (3.5-5.1); Sodium 136 mmol/L (136-145)
[2020-12-22 06:34] LABS: Band 12 % (5-11); Eosinophils 1 % (0-10); Lymphocytes 35 % (21-51); MDiff Complete? YES; Monocytes 11 % (0-10); Neutrophil 41 % (42-75); Platelet Morphology Comment Appears Decreased
[2020-12-22] MEDS ORDERED: Citalopram 20 MG TAB PO SCH (09:00)
[2020-12-22] MEDS: predniSONE 1 MG TAB PO SCH ×3 (09:07→20:57)
[2020-12-22] MEDS: lamoTRIgine 100 MG TAB PO SCH (09:07)
[2020-12-22] MEDS: Carbidopa/Levodopa 10-100 mg Tablet PO SCH ×3 (09:07→20:57)
[2020-12-22] MEDS ORDERED: HYDROcodone/Acetaminophen 5/325 mg Tablet PO PRN ×2 (14:03)
[2020-12-22] MEDS: guaiFENesin ER 600 MG TAB PO PRN ×2 (15:11→21:01)
[2020-12-22 15:58] LABS: SARS-CoV-2 PCR by NAA Not Detected (NotDetected)
[2020-12-22] MEDS: Citalopram 20 MG TAB PO SCH (20:58)
[2020-12-22] MEDS: Levothyroxine Sodium 75 MCG TAB PO SCH (20:58)
[2020-12-22] MEDS: Acetaminophen 325 MG TAB PO PRN (21:00)
[2020-12-23] MEDS: predniSONE 1 MG TAB PO SCH ×3 (10:25→21:06)
[2020-12-23] MEDS: Carbidopa/Levodopa 10-100 mg Tablet PO SCH ×3 (10:25→21:05)
[2020-12-23] MEDS: guaiFENesin ER 600 MG TAB PO PRN ×2 (10:25→18:13)
[2020-12-23] MEDS: lamoTRIgine 100 MG TAB PO SCH (10:25)
[2020-12-23] MEDS: Citalopram 20 MG TAB PO SCH (21:06)
[2020-12-23] MEDS: Levothyroxine Sodium 75 MCG TAB PO SCH (21:06)
[2020-12-24] MEDS: guaiFENesin ER 600 MG TAB PO PRN ×3 (02:05→20:54)
[2020-12-24 06:29] LABS: #Eosinphils 0.2 thou/uL (0.0-0.7); #Monocytes 1.3 thou/uL (0.11-0.59); #Neutrophils 4.5 thou/uL (1.40-6.50); %Basophils 0.4 % (0.0-1.0); %Eosinophils 1.8 % (0.0-10.0); %Lymphocytes 33.2 % (21.0-51.0); %Monocytes 14.8 % (0.0-10.0); %Neutrophils 49.7 % (42.0-75.0); Mean Corpuscular HGB CONC 34.3 g/dL (32.0-36.0); Mean Corpuscular Hemoglobin 34.9 pg (27.0-31.0); Mean Platelet Volume 7.3 fL (7.4-10.4); Platelet Count 101 thou/uL (130-400); RBC Distribution Width 13.4 % (11.5-14.5); Red Blood Cell (RBC) Count 3.44 mill/uL (4.20-5.40)
[2020-12-24 06:47] LABS: Anion Gap 15 mmol/L (10-20); BUN (Urea Nitrogen) 16 mg/dL (9.8-20.1); Calc. Creatinine Clearance 86 mL/min (70-130); Calcium 8.9 mg/dL (7.8-10.44); Carbon Dioxide 24 mmol/L (23-31); Chloride 98 mmol/L (98-107); Glucose 116 mg/dL (83-110); Sodium 133 mmol/L (136-145)
[2020-12-24] MEDS: Carbidopa/Levodopa 10-100 mg Tablet PO SCH ×3 (09:30→20:52)
[2020-12-24] MEDS: lamoTRIgine 100 MG TAB PO SCH (09:31)
[2020-12-24] MEDS: predniSONE 1 MG TAB PO SCH ×3 (09:31→20:52)
[2020-12-24] MEDS: Citalopram 20 MG TAB PO SCH (20:53)
[2020-12-24] MEDS: Levothyroxine Sodium 75 MCG TAB PO SCH (20:53)
[2020-12-24] MEDS: Acetaminophen 325 MG TAB PO PRN (20:54)
[2020-12-25] MEDS: guaiFENesin ER 600 MG TAB PO PRN ×3 (06:01→20:29)
[2020-12-25] MEDS: Carbidopa/Levodopa 10-100 mg Tablet PO SCH ×3 (08:21→20:29)
[2020-12-25] MEDS: predniSONE 1 MG TAB PO SCH ×3 (08:21→20:31)
[2020-12-25] MEDS: lamoTRIgine 100 MG TAB PO SCH (08:22)
[2020-12-25 09:18] LABS: Anion Gap 17 mmol/L (10-20); BUN (Urea Nitrogen) 16 mg/dL (9.8-20.1); Calc. Creatinine Clearance 81 mL/min (70-130); Calcium 9.6 mg/dL (7.8-10.44); Carbon Dioxide 25 mmol/L (23-31); Chloride 98 mmol/L (98-107); Glucose 125 mg/dL (83-110); Sodium 136 mmol/L (136-145)
[2020-12-25 09:20] LABS: Hemoglobin 13.4 g/dL (12.0-16.0); Mean Corpuscular HGB CONC 31.8 g/dL (32.0-36.0); Mean Corpuscular Hemoglobin 32.6 pg (27.0-31.0); Mean Platelet Volume 7.4 fL (7.4-10.4); Platelet Count 113 thou/uL (130-400); RBC Distribution Width 13.3 % (11.5-14.5); Red Blood Cell (RBC) Count 4.11 mill/uL (4.20-5.40); White Blood Cell (WBC) Count 7.6 thou/uL (4.8-10.8)
[2020-12-25 09:33] LABS: Band 9 % (5-11); Eosinophils 4 % (0-10); Lymphocytes 32 % (21-51); MDiff Complete? YES; Metamyelocyte 3 % (0-0); Monocytes 10 % (0-10); Myelocyte 1 % (0-0); Neutrophil 37 % (42-75); Platelet Morphology Comment Appears Decreased; RBC Morphology Normal; Reactive Lymphocytes 3 % (0-10)
[2020-12-25] MEDS: Benzonatate 100 MG CAP PO SCH ×2 (11:44→17:10)
[2020-12-25] MEDS: Levothyroxine Sodium 75 MCG TAB PO SCH (20:31)
[2020-12-25] MEDS: Citalopram 20 MG TAB PO SCH (20:31)
[2020-12-26] MEDS: Benzonatate 100 MG CAP PO SCH ×3 (05:53→17:05)
[2020-12-26 06:40] LABS: Hemoglobin 12.6 g/dL (12.0-16.0); Mean Corpuscular HGB CONC 33.4 g/dL (32.0-36.0); Mean Corpuscular Hemoglobin 33.8 pg (27.0-31.0); Mean Platelet Volume 6.9 fL (7.4-10.4); Platelet Count 126 thou/uL (130-400); RBC Distribution Width 13.6 % (11.5-14.5); Red Blood Cell (RBC) Count 3.74 mill/uL (4.20-5.40); White Blood Cell (WBC) Count 10.9 thou/uL (4.8-10.8)
[2020-12-26 06:53] LABS: Anion Gap 13 mmol/L (10-20); BUN (Urea Nitrogen) 20 mg/dL (9.8-20.1); Calc. Creatinine Clearance 72 mL/min (70-130); Calcium 9.6 mg/dL (7.8-10.44); Carbon Dioxide 28 mmol/L (23-31); Chloride 96 mmol/L (98-107); Glucose 148 mg/dL (83-110); Sodium 133 mmol/L (136-145)
[2020-12-26 07:48] LABS: Band 10 % (5-11); Lymphocytes 23 % (21-51); MDiff Complete? YES; Metamyelocyte 1 % (0-0); Monocytes 9 % (0-10); Neutrophil 57 % (42-75); Platelet Morphology Comment Appears Decreased; RBC Morphology Normal; Small Platelets SLIGHT
[2020-12-26] MEDS: Carbidopa/Levodopa 10-100 mg Tablet PO SCH ×3 (10:23→21:09)
[2020-12-26] MEDS: predniSONE 1 MG TAB PO SCH ×3 (10:23→21:15)
[2020-12-26] MEDS ORDERED: PROPOFOL 200 MG/20 ML VIAL ONE (10:41)
[2020-12-26] MEDS: lamoTRIgine 100 MG TAB PO SCH (15:20)
[2020-12-26] MEDS: Citalopram 20 MG TAB PO SCH (21:14)
[2020-12-26] MEDS: Levothyroxine Sodium 75 MCG TAB PO SCH (21:14)
[2020-12-27 00:19] LABS: SARS-CoV-2 PCR by NAA Not Detected (NotDetected)
[2020-12-27] MEDS: guaiFENesin ER 600 MG TAB PO PRN (03:58)
[2020-12-27] MEDS: Acetaminophen 325 MG TAB PO PRN (04:00)
[2020-12-27] MEDS: Benzonatate 100 MG CAP PO SCH (06:05)
[2020-12-27 07:34] VITALS: BP 130/69; TEMP 98.7
[2020-12-27] MEDS: lamoTRIgine 100 MG TAB PO SCH (08:40)
[2020-12-27] MEDS: predniSONE 1 MG TAB PO SCH (08:41)
[2020-12-27] MEDS: Carbidopa/Levodopa 10-100 mg Tablet PO SCH (08:41)
== END 2020-12-27 11:16 | DRG 178 ==
LOC: ERS 11:54 → ERHOLD 14:52 → T4-B 18:19
PROVIDERS: ADMIT Specialist; ATTEND Specialist
PROC: 0DB58ZX Excision of Esophagus, Via Natural or Artificial Opening Endoscopic, Diagnostic (ICD-10-PCS; principal; 2020-12-26)
PROC: 0DB68ZX Excision of Stomach, Via Natural or Artificial Opening Endoscopic, Diagnostic (ICD-10-PCS; 2020-12-26)
DX: J69.0 Pneumonitis due to inhalation of food and vomit (principal); N39.0 Urinary tract infection, site not specified; G93.1 Anoxic brain damage, not elsewhere classified; Z20.822 Contact with and (suspected) exposure to COVID-19; G20 Parkinson's disease; R13.12 Dysphagia, oropharyngeal phase; F31.9 Bipolar disorder, unspecified; E03.9 Hypothyroidism, unspecified; M85.80 Other specified disorders of bone density and structure, unspecified site; E66.01 Morbid (severe) obesity due to excess calories; R29.6 Repeated falls; F02.80 Dementia in other diseases classified elsewhere, unspecified severity, without behavioral disturbance, psychotic disturbance, mood disturbance, and anxiety; M19.90 Unspecified osteoarthritis, unspecified site; E11.9 Type 2 diabetes mellitus without complications; E78.5 Hyperlipidemia, unspecified; I10 Essential (primary) hypertension; Z96.653 Presence of artificial knee joint, bilateral; G30.9 Alzheimer's disease, unspecified; K21.9 Gastro-esophageal reflux disease without esophagitis; Z90.49 Acquired absence of other specified parts of digestive tract; Z88.5 Allergy status to narcotic agent; Z88.0 Allergy status to penicillin; Z88.8 Allergy status to other drugs, medicaments and biological substances; Z79.82 Long term (current) use of aspirin; Z79.890 Hormone replacement therapy; Z79.52 Long term (current) use of systemic steroids; Z79.899 Other long term (current) drug therapy; Z68.35 Body mass index [BMI] 35.0-35.9, adult; D69.59 Other secondary thrombocytopenia; T42.6X5A Adverse effect of other antiepileptic and sedative-hypnotic drugs, initial encounter; R09.02 Hypoxemia
CPT/HCPCS: 36415; 36416; 51701; 70450; 70551; 71045; 80048; 80053; 80164; 81003; 81015; 83036; 84443; 84484; 85025; 87086; 88305; 88312; 88313; 93005; 94640; 95712; 95816; 95819; 95957; 96365; 96366; J1815; J1956; J2704; J7512; J7620; U0003; U0005

== ENCOUNTER 2020-12-28 10:22 | Inpatient (IN) | payer MEDICARE ==
[2020-12-28 11:05] LABS: #Basophils 0.1 thou/uL (0.0-0.2); #Eosinphils 0.1 thou/uL (0.0-0.7); #Lymphocytes 2.3 thou/uL (1.20-3.40); #Neutrophils 11.4 thou/uL (1.40-6.50); %Basophils 0.4 % (0.0-1.0); %Eosinophils 0.4 % (0.0-10.0); %Lymphocytes 14.5 % (21.0-51.0); %Monocytes 12.8 % (0.0-10.0); %Neutrophils 71.9 % (42.0-75.0); Hemoglobin 13.3 g/dL (12.0-16.0); Mean Corpuscular HGB CONC 33.9 g/dL (32.0-36.0); Mean Corpuscular Hemoglobin 34.6 pg (27.0-31.0); Mean Platelet Volume 6.5 fL (7.4-10.4); Platelet Count 154 thou/uL (130-400); RBC Distribution Width 13.8 % (11.5-14.5); Red Blood Cell (RBC) Count 3.84 mill/uL (4.20-5.40); White Blood Cell (WBC) Count 15.9 thou/uL (4.8-10.8)
[2020-12-28 11:19] LABS: ALT (SGPT) 15 U/L (8-55); AST (SGOT) 19 U/L (5-34); Albumin 3.4 g/dL (3.4-4.8); Alkaline Phosphatase 69 U/L (40-110); Anion Gap 14 mmol/L (10-20); BUN (Urea Nitrogen) 22 mg/dL (9.8-20.1); Bilirubin, Total 0.8 mg/dL (0.2-1.2); Calc. Creatinine Clearance 0 mL/min (70-130); Calcium 9.2 mg/dL (7.8-10.44); Carbon Dioxide 25 mmol/L (23-31); Chloride 103 mmol/L (98-107); Globulin 4.1 g/dL (2.4-3.5); Glucose 161 mg/dL (83-110); Magnesium 2.3 mg/dL (1.6-2.6); Protein, Total 7.5 g/dL (5.8-8.1); Sodium 138 mmol/L (136-145)
[2020-12-28 11:25] LABS: Actual Bicarbonate (HCO3a) 23.9 mEq/L (22-28); Analyzer IN Cardio ER; Base Excess (BEa) -0.5 mEq/L (-2.0 to +3.0); CO2 Tension 38.6 mmHg (35.0-45.0); Calcium, Ionized (arterial) 1.18 mmol/L (1.12-1.30); Carboxyhemoglobin (COHb) 0.2 gm% (0.0-3.0); Hemoglobin (Hb) 12.3 g/dL (12.0-16.0); Potassium - ABG Lab 3.76 mmol/L (3.70-5.30); Puncture Site RRA; pH, Arterial 7.41 (7.35-7.45)
[2020-12-28] MEDS ORDERED: Cefepime 2 GM VIAL ONE (11:33)
[2020-12-28] MEDS ORDERED: Vancomycin 1 GM/200 ML BAG ONE (11:33)
[2020-12-28 11:42] LABS: SARS-CoV-2 NAA Rapid Test Not Detected (NotDetected)
[2020-12-28 13:02] LABS: Bacteria/HPF None Seen HPF (None Seen); Bilirubin Negative (Negative); Blood, Urine 3+ (Negative); Clarity Clear (Clear); Glucose, Urine (Dipstick) 30 mg/dL (Negative); Ketone, Urine 20 mg/dL (Negative); Leukocyte Negative Leu/uL (Negative); Nitrite Negative (Negative); Protein, Urine (Dipstick) 50 mg/dL (Neg-Trace); Specific Gravity, Urine 1.038 (1.002-1.036); Squamous Epithelial 0-3 HPF (0-3); Urobilinogen 6 mg/dL (Less than 2); WBC/HPF 0-3 HPF (0-3)
[2020-12-28] MEDS ORDERED: Acetaminophen 325 MG Suppository PR PRN (14:38)
[2020-12-28 14:42] VITALS: BMI 33.9
[2020-12-28] MEDS ORDERED: Sodium Chloride 0.9% 1,000 ML IV SCH (14:45)
[2020-12-28] MEDS ORDERED: Ondansetron PF 4 MG/2 ML Vial IVP PRN (19:23)
[2020-12-28] MEDS ORDERED: Dextrose 5% in Water 1,000 ML IV PRN (19:30)
[2020-12-28] MEDS ORDERED: Dextrose 50% Abboject 50 ML SYRINGE IVP PRN (19:30)
[2020-12-28] MEDS ORDERED: Sodium Chloride 0.9% (PF) 10 ML VIAL FS PRN (19:30)
[2020-12-28] MEDS ORDERED: VANCOMYCIN 1.75 GM/350 ML BAG 1.75 GM in Premix Bag 1 BAG IVPB SCH (20:00)
[2020-12-28] MEDS ORDERED: Vancomycin HCl 750 MG in Sodium Chloride 0.9% 250 ML 250 ML IVPB SCH (20:00)
[2020-12-28] MEDS: Dextrose 5 % And 0.9 % NaCl 1,000 ML IV SCH (21:05)
[2020-12-28] MEDS: Cefepime 2 GM in Sodium Chloride 0.9% 100 ML IVPB SCH (21:07)
[2020-12-28] MEDS: predniSONE 50 MG TAB PO SCH (21:51)
[2020-12-29] MEDS: predniSONE 50 MG TAB PO SCH ×2 (02:15→08:02)
[2020-12-29] MEDS: Cefepime 2 GM in Sodium Chloride 0.9% 100 ML IVPB SCH ×3 (04:15→21:01)
[2020-12-29] MEDS: Dextrose 5 % And 0.9 % NaCl 1,000 ML IV SCH ×2 (05:36→11:03)
[2020-12-29] MEDS: Acetaminophen 325 MG Suppository PR PRN ×2 (05:56→10:51)
[2020-12-29 06:20] LABS: #Lymphocytes 1.2 thou/uL (1.20-3.40); #Monocytes 0.5 thou/uL (0.11-0.59); #Neutrophils 8.9 thou/uL (1.40-6.50); %Basophils 0.1 % (0.0-1.0); %Eosinophils 0.1 % (0.0-10.0); %Lymphocytes 11.1 % (21.0-51.0); %Monocytes 4.9 % (0.0-10.0); %Neutrophils 83.8 % (42.0-75.0); Hemoglobin 11.1 g/dL (12.0-16.0); Mean Corpuscular HGB CONC 31.9 g/dL (32.0-36.0); Mean Corpuscular Hemoglobin 32.8 pg (27.0-31.0); Mean Platelet Volume 6.2 fL (7.4-10.4); Platelet Count 146 thou/uL (130-400); RBC Distribution Width 13.3 % (11.5-14.5); Red Blood Cell (RBC) Count 3.38 mill/uL (4.20-5.40); White Blood Cell (WBC) Count 10.6 thou/uL (4.8-10.8)
[2020-12-29 07:16] LABS: Anion Gap 11 mmol/L (10-20); BUN (Urea Nitrogen) 16 mg/dL (9.8-20.1); Calc. Creatinine Clearance 95 mL/min (70-130); Calcium 8.8 mg/dL (7.8-10.44); Carbon Dioxide 23 mmol/L (23-31); Chloride 108 mmol/L (98-107); Glucose 216 mg/dL (83-110); Potassium 4.1 mmol/L (3.5-5.1); Sodium 138 mmol/L (136-145)
[2020-12-29] MEDS ORDERED: diphenhydrAMINE 50 MG CAP PO SCH (08:00)
[2020-12-29] MEDS: Pantoprazole 40 MG VIAL IVP SCH (08:03)
[2020-12-29] MEDS ORDERED: Iopamidol-370 76% 500 ML 1 ML ONE (11:17)
[2020-12-29] MEDS: Acetaminophen 650 MG Suppository PR SCH ×3 (12:22→23:42)
[2020-12-29] MEDS: Sodium Chloride 0.9% 1,000 ML IV SCH (13:00)
[2020-12-29] MEDS: Insulin Regular 300 UNITS/3 ML VIAL SC PRN ×2 (13:01→16:25)
[2020-12-29] MEDS ORDERED: Vancomycin 1.5 GRAM/300 ML BAG 1.5 GM in Premix Bag 1 BAG IVPB SCH (21:00)
[2020-12-29] MEDS ORDERED: Acetaminophen 650 MG/20.3 ML UDCUP PO SCH (21:00)
[2020-12-29] MEDS: Acetaminophen 650 MG/20.3 ML UDCUP PER TUBE SCH (21:03)
[2020-12-30] MEDS: Acetaminophen 650 MG/20.3 ML UDCUP PER TUBE SCH ×6 (00:54→20:52)
[2020-12-30] MEDS: Cefepime 2 GM in Sodium Chloride 0.9% 100 ML IVPB SCH ×3 (03:32→20:51)
[2020-12-30] MEDS: Sodium Chloride 0.9% 1,000 ML IV SCH ×3 (03:33→20:53)
[2020-12-30 06:48] LABS: #Eosinphils 0.1 thou/uL (0.0-0.7); #Lymphocytes 2.3 thou/uL (1.20-3.40); #Monocytes 0.9 thou/uL (0.11-0.59); #Neutrophils 6.8 thou/uL (1.40-6.50); %Basophils 0.1 % (0.0-1.0); %Eosinophils 0.8 % (0.0-10.0); %Lymphocytes 22.9 % (21.0-51.0); %Monocytes 9.2 % (0.0-10.0); %Neutrophils 66.9 % (42.0-75.0); Hemoglobin 10.3 g/dL (12.0-16.0); Mean Corpuscular HGB CONC 32.1 g/dL (32.0-36.0); Mean Corpuscular Hemoglobin 33.5 pg (27.0-31.0); Mean Platelet Volume 6.3 fL (7.4-10.4); Platelet Count 190 thou/uL (130-400); RBC Distribution Width 13.1 % (11.5-14.5); Red Blood Cell (RBC) Count 3.07 mill/uL (4.20-5.40); White Blood Cell (WBC) Count 10.2 thou/uL (4.8-10.8)
[2020-12-30 07:15] LABS: Anion Gap 10 mmol/L (10-20); BUN (Urea Nitrogen) 19 mg/dL (9.8-20.1); Calc. Creatinine Clearance 95 mL/min (70-130); Calcium 8.4 mg/dL (7.8-10.44); Carbon Dioxide 22 mmol/L (23-31); Chloride 110 mmol/L (98-107); Glucose 145 mg/dL (83-110); Potassium 3.4 mmol/L (3.5-5.1); Sodium 139 mmol/L (136-145)
[2020-12-30] MEDS: Pantoprazole 40 MG VIAL IVP SCH (09:01)
[2020-12-30 20:26] LABS: Vancomycin, Trough 9.4 ug/mL
[2020-12-30] MEDS ORDERED: Vancomycin 1 GM in Premix Bag 1 BAG IVPB SCH (21:00)
[2020-12-31] MEDS: Acetaminophen 650 MG/20.3 ML UDCUP PER TUBE SCH ×6 (01:48→20:49)
[2020-12-31] MEDS: Cefepime 2 GM in Sodium Chloride 0.9% 100 ML IVPB SCH ×3 (04:49→20:49)
[2020-12-31 06:33] LABS: #Eosinphils 0.2 thou/uL (0.0-0.7); #Lymphocytes 1.9 thou/uL (1.20-3.40); #Monocytes 0.9 thou/uL (0.11-0.59); %Basophils 0.2 % (0.0-1.0); %Eosinophils 3.4 % (0.0-10.0); %Lymphocytes 26.5 % (21.0-51.0); %Monocytes 13.4 % (0.0-10.0); %Neutrophils 56.6 % (42.0-75.0); Hemoglobin 9.8 g/dL (12.0-16.0); Mean Corpuscular HGB CONC 31.9 g/dL (32.0-36.0); Mean Platelet Volume 6.1 fL (7.4-10.4); Platelet Count 207 thou/uL (130-400); RBC Distribution Width 13.1 % (11.5-14.5); Red Blood Cell (RBC) Count 2.96 mill/uL (4.20-5.40)
[2020-12-31] MEDS: Vancomycin 1 GM in Premix Bag 1 BAG IVPB SCH ×2 (06:48→18:29)
[2020-12-31 07:00] LABS: Anion Gap 11 mmol/L (10-20); BUN (Urea Nitrogen) 15 mg/dL (9.8-20.1); Calc. Creatinine Clearance 98 mL/min (70-130); Calcium 8.3 mg/dL (7.8-10.44); Carbon Dioxide 22 mmol/L (23-31); Chloride 111 mmol/L (98-107); Glucose 142 mg/dL (83-110); Potassium 3.3 mmol/L (3.5-5.1); Sodium 141 mmol/L (136-145)
[2020-12-31] MEDS: Pantoprazole 40 MG VIAL IVP SCH (08:22)
[2020-12-31] MEDS: Sodium Chloride 0.9% 1,000 ML IV SCH (18:25)
[2021-01-01] MEDS: Acetaminophen 650 MG/20.3 ML UDCUP PER TUBE SCH ×6 (01:33→20:37)
[2021-01-01] MEDS: Cefepime 2 GM in Sodium Chloride 0.9% 100 ML IVPB SCH ×4 (04:58→23:14)
[2021-01-01] MEDS: Vancomycin 1 GM in Premix Bag 1 BAG IVPB SCH ×2 (05:46→18:08)
[2021-01-01] MEDS: Sodium Chloride 0.9% 1,000 ML IV SCH ×3 (05:47→20:39)
[2021-01-01] MEDS: Pantoprazole 40 MG VIAL IVP SCH (09:06)
[2021-01-02] MEDS: Acetaminophen 650 MG/20.3 ML UDCUP PER TUBE SCH ×6 (01:30→21:30)
[2021-01-02] MEDS: Vancomycin 1 GM in Premix Bag 1 BAG IVPB SCH ×2 (05:43→17:29)
[2021-01-02] MEDS: Pantoprazole 40 MG VIAL IVP SCH (08:12)
[2021-01-02] MEDS: Cefepime 2 GM in Sodium Chloride 0.9% 100 ML IVPB SCH ×3 (08:13→23:55)
[2021-01-02] MEDS ORDERED: Benzonatate 100 MG CAP PO SCH (12:45)
[2021-01-02] MEDS: Sodium Chloride 0.9% 1,000 ML IV SCH ×2 (12:59→23:55)
[2021-01-02] MEDS: Benzonatate 100 MG CAP PO SCH (21:30)
[2021-01-03] MEDS: Acetaminophen 650 MG/20.3 ML UDCUP PER TUBE SCH ×4 (00:33→14:29)
[2021-01-03] MEDS: Vancomycin 1 GM in Premix Bag 1 BAG IVPB SCH (05:03)
[2021-01-03] MEDS: Pantoprazole 40 MG VIAL IVP SCH (08:06)
[2021-01-03] MEDS: Benzonatate 100 MG CAP PO SCH ×2 (08:06→14:30)
[2021-01-03] MEDS: Cefepime 2 GM in Sodium Chloride 0.9% 100 ML IVPB SCH (08:06)
[2021-01-03] MEDS: Sodium Chloride 0.9% 1,000 ML IV SCH (13:12)
[2021-01-03 15:02] VITALS: BP 161/93; TEMP 98.8
== END 2021-01-03 15:00 | DRG 56 ==
LOC: ERS 10:22 → ERHOLD 12:52 → T4-B 14:25
PROVIDERS: ADMIT Specialist; ATTEND Specialist
DX: G30.9 Alzheimer's disease, unspecified (principal); A41.9 Sepsis, unspecified organism; J69.0 Pneumonitis due to inhalation of food and vomit; E03.9 Hypothyroidism, unspecified; G20 Parkinson's disease; F31.9 Bipolar disorder, unspecified; F02.80 Dementia in other diseases classified elsewhere, unspecified severity, without behavioral disturbance, psychotic disturbance, mood disturbance, and anxiety; E11.9 Type 2 diabetes mellitus without complications; E86.0 Dehydration; R13.12 Dysphagia, oropharyngeal phase; Z96.653 Presence of artificial knee joint, bilateral; Z20.822 Contact with and (suspected) exposure to COVID-19; Z88.5 Allergy status to narcotic agent; Z91.041 Radiographic dye allergy status; Z79.890 Hormone replacement therapy; Z79.899 Other long term (current) drug therapy; Z79.82 Long term (current) use of aspirin; Z90.49 Acquired absence of other specified parts of digestive tract
CPT/HCPCS: 0240U; 36415; 36416; 36600; 70450; 71045; 71275; 74018; 74230; 80048; 80053; 80202; 81003; 81015; 82140; 82805; 83605; 83735; 83880; 84484; 85025; 87040; 87086; 93005; 94640; 96365; 96367; C9113; J0692; J1815; J3370; J3490; J7050; J7512; J7620; Q9967

== ENCOUNTER 2021-03-25 13:49 | Outpatient (CLI) | payer MEDICARE | END 2021-03-25 13:50 | disposition home or self-care (01) | LOC: BICRAD 13:49 | PROVIDERS: ATTEND Specialist | DX: M25.512 Pain in left shoulder (principal); M19.012 Primary osteoarthritis, left shoulder ==

== ENCOUNTER 2021-06-12 12:50 | Outpatient (CLI) | payer MEDICARE ==
[2021-06-12 23:10] LABS: SARS-CoV-2 PCR by NAA Not Detected (NotDetected)
== END 2021-06-12 12:51 | disposition home or self-care (01) ==
LOC: LABBT 12:50
PROVIDERS: ATTEND Family Medicine
DX: Z01.812 Encounter for preprocedural laboratory examination (principal); Z20.822 Contact with and (suspected) exposure to COVID-19
CPT/HCPCS: U0003; U0005

== ENCOUNTER 2021-06-13 13:02 | Outpatient (CLI) | payer MEDICARE | END 2021-06-13 13:03 | disposition home or self-care (01) | PROVIDERS: ATTEND Physician Assistant Medical | DX: R13.12 Dysphagia, oropharyngeal phase (principal); R63.30 Feeding difficulties, unspecified; J69.0 Pneumonitis due to inhalation of food and vomit | CPT/HCPCS: 74230 ==

== ENCOUNTER 2022-11-06 10:51 | Outpatient (CLI) | payer MEDICARE, OTHER | END 2022-11-06 10:52 | disposition home or self-care (01) | LOC: BICMAMMO 10:51 | PROVIDERS: ATTEND Specialist | DX: Z12.31 Encounter for screening mammogram for malignant neoplasm of breast (principal) | CPT/HCPCS: 77063; 77067 ==

== ENCOUNTER 2023-12-08 14:02 | Emergency (ER) | payer MEDICARE ==
[2023-12-08] MEDS ORDERED: Haloperidol Lactate 5 MG/ML VIAL ONE (14:10)
[2023-12-08 14:54] LABS: #Basophils Less than 0.03 10x3/uL (0.0-0.2); %Basophils 0.1 % (0.0-1.0); %Eosinophils 1.1 % (0.0-10.0); %Monocytes 9.8 % (0.0-10.0); %Neutrophils 43.7 % (42.0-75.0); Hematocrit 39.7 % (36.0-47.0); Mean Corpuscular HGB CONC 30.2 g/dL (32.0-36.0); Mean Corpuscular Volume 102.6 fL (78.0-98.0); Mean Platelet Volume 9.3 fL (7.4-10.4); Platelet Count 192 10x3/uL (130-400); RBC Distribution Width 14.1 % (11.5-14.5); Red Blood Cell (RBC) Count 3.87 mill/uL (4.20-5.40)
[2023-12-08 15:08] LABS: Amphetamine Not Detected (NotDetected); Barbiturates Screen Not Detected (NotDetected); Benzodiazepine Screen Not Detected (NotDetected); Cocaine Metabolite Screen Not Detected (NotDetected); Methadone Not Detected (NotDetected); Methamphetamine Not Detected (NotDetected); Opiate Screen Not Detected (NotDetected); Oxycodone Screen Not Detected (NotDetected); Phencyclidine (PCP) Not Detected (NotDetected); THC/Cannabinoid Screen Not Detected (NotDetected); Tricyclic Screen Not Detected (NotDetected)
[2023-12-08 15:19] LABS: ALT (SGPT) 8 U/L (8-55); AST (SGOT) 18 U/L (5-34); Acetaminophen Less than 10 mcg/mL (10.0-30.0); Albumin 3.5 g/dL (3.4-4.8); Alcohol Less than 10.0 mg/dL (Less than 10); Alkaline Phosphatase 78 U/L (40-110); Anion Gap 18 mmol/L (10-20); BUN (Urea Nitrogen) 16 mg/dL (9.8-20.1); Bilirubin, Total 0.3 mg/dL (0.2-1.2); Calc. Creatinine Clearance 0 mL/min (70-130); Calcium 9.1 mg/dL (7.8-10.44); Carbon Dioxide 19 mmol/L (23-31); Chloride 107 mmol/L (98-107); Estimated GFR 66; Globulin 3.7 g/dL (2.4-3.5); Glucose 175 mg/dL (83-110); Magnesium 1.9 mg/dL (1.6-2.6); Potassium 3.8 mmol/L (3.5-5.1); Protein, Total 7.2 g/dL (5.8-8.1); Salicylate Less than 8.0 mg/dL (15.0-30.0); Sodium 140 mmol/L (136-145)
[2023-12-08 15:22] LABS: Bacteria/HPF 4+ HPF (None Seen); Bilirubin Negative (Negative); Blood, Urine 2+ (Negative); CAUTI Indications for Culture Alt mental st,lethar; Glucose, Urine (Dipstick) Normal (Negative); Ketone, Urine Negative (Negative); Leukocyte 500 Leu/uL (Negative); Nitrite 2+ (Negative); Protein, Urine (Dipstick) 50 mg/dL (Neg-Trace); Specific Gravity, Urine 1.027 (1.002-1.036); Squamous Epithelial 0-3 HPF (0-3); Urobilinogen Normal mg/dL (Less than 2); WBC/HPF Greater than 50 HPF (0-3); pH, Urine 5.5 (5.0-9.0)
[2023-12-08 15:24] LABS: Clarity Turbid (Clear); Urine Culture Reflex Yes Yes
[2023-12-08] MEDS ORDERED: cefTRIAXone (ROCEPHIN) 1 GM VIAL ONE (16:01)
[2023-12-08] MEDS ORDERED: Sodium Chloride 0.9% 100 ML ONE (16:01)
[2023-12-08] MEDS ORDERED: Cephalexin 250 MG CAP ONE (19:24)
[2023-12-08] MEDS ORDERED: hydrOXYzine Pamoate 25 mg Capsule ONE (20:33)
[2023-12-08] MEDS ORDERED: risperiDONE 1 MG TAB ONE (20:34)
== END 2023-12-08 22:25 ==
LOC: ERS 14:02
DX: R45.1 Restlessness and agitation (principal); R45.851 Suicidal ideations; N39.0 Urinary tract infection, site not specified; E78.5 Hyperlipidemia, unspecified; E11.9 Type 2 diabetes mellitus without complications; Z79.899 Other long term (current) drug therapy
CPT/HCPCS: 51701; 80178; 80306; 80307; 81001; 83735; 87077; 87086; 87186; 96365; 96372; 99285; J0696; J1630; J3490; 36415; 36416; 80053; 84443; 85025; Q0177

== ENCOUNTER 2024-06-02 15:55 | Emergency (ER) | payer MEDICARE | END 2024-06-03 12:05 | disposition home or self-care (01) | LOC: ERS 15:55 | DX: S00.81XA Abrasion of other part of head, initial encounter (principal); E11.9 Type 2 diabetes mellitus without complications; W19.XXXA Unspecified fall, initial encounter | CPT/HCPCS: 70450; 72125 ==

== ENCOUNTER 2024-07-29 12:44 | Inpatient (IN) | payer MEDICARE ==
[2024-07-29] MEDS ORDERED: Acetaminophen 325 MG TAB ONE (14:50)
[2024-07-29 14:57] LABS: Hematocrit 41.1 % (36.0-47.0); Hemoglobin 12.9 g/dL (12.0-16.0); Mean Corpuscular HGB CONC 31.4 g/dL (32.0-36.0); Mean Corpuscular Hemoglobin 29.7 pg (27.0-31.0); Mean Corpuscular Volume 94.5 fL (78.0-98.0); Platelet Count 178 10x3/uL (130-400); RBC Distribution Width 14.8 % (11.5-14.5); Red Blood Cell (RBC) Count 4.35 mill/uL (4.20-5.40)
[2024-07-29 15:22] LABS: Bacteria/HPF 2+ HPF (None Seen); Bilirubin Negative (Negative); Blood, Urine 1+ (Negative); CAUTI Indications for Culture Acute Hematuria; Clarity Turbid (Clear); Glucose, Urine (Dipstick) Normal (Negative); Ketone, Urine Negative (Negative); Leukocyte 500 Leu/uL (Negative); Nitrite 1+ (Negative); Protein, Urine (Dipstick) 20 mg/dL (Neg-Trace); Specific Gravity, Urine 1.018 (1.002-1.036); Squamous Epithelial 0-3 HPF (0-3); Urobilinogen Normal mg/dL (Less than 2); WBC/HPF Greater than 50 HPF (0-3); pH, Urine 5.5 (5.0-9.0)
[2024-07-29 15:23] LABS: Urine Culture Reflex Yes Yes
[2024-07-29 15:25] LABS: Troponin I Less than 0.010 ng/mL (< 0.028)
[2024-07-29 15:38] LABS: Band 3 % (5-11); Lymphocytes 9 % (21-51); Macrocytosis SLIGHT = 6-15 cells HPF (0-5); Monocytes 14 % (0-10); Neutrophil 69 % (42-75); Platelet Adequacy Comment Platelets Normal; Polychromasia SLIGHT = 2-3 cells HPF (0-2); Reactive Lymphocytes 6 % (0-10); Smudge Cells 32.4 %
[2024-07-29 16:12] LABS: AST (SGOT) 32 U/L (11-34); Albumin 3.4 g/dL (3.1-4.5); CK (CPK) 167 U/L (29-168)
[2024-07-29 16:15] LABS: ALT (SGPT) 10 U/L (Less than 34); Alkaline Phosphatase 86 U/L (40-110); Anion Gap 18 mmol/L (10-20); BUN (Urea Nitrogen) 11 mg/dL (9.8-20.1); Bilirubin, Total 0.4 mg/dL (0.3-1.2); Calc. Creatinine Clearance 0 mL/min (70-130); Calcium 8.4 mg/dL (7.8-10.44); Carbon Dioxide 22 mmol/L (23-31); Chloride 104 mmol/L (98-107); Estimated GFR 73; Glucose 125 mg/dL (83-110); Lipase 10 U/L (8-78); Potassium 4.6 mmol/L (3.5-5.1); Protein, Total 7.9 g/dL (5.8-8.1); Sodium 139 mmol/L (136-145)
[2024-07-29 16:16] LABS: Globulin 4.5 g/dL (2.4-3.5)
[2024-07-29] MEDS ORDERED: Sodium Chloride 0.9% 100 ML ONE (16:40)
[2024-07-29] MEDS ORDERED: cefTRIAXone (ROCEPHIN) 2 GM VIAL ONE (16:40)
[2024-07-29] MEDS ORDERED: Ondansetron PF 4 MG/2 ML Vial IVP PRN (18:34)
[2024-07-29 19:53] VITALS: BMI 40.6
[2024-07-29] MEDS: Oseltamivir 75 MG CAP PO SCH (21:32)
[2024-07-29] MEDS: Heparin 5,000 UNITS/ML VIAL SC SCH (21:32)
[2024-07-29] MEDS: cefTRIAXone\\ROCEPHIN 1 GM in Sodium Chloride 0.9% 100 ML IVPB SCH (22:58)
[2024-07-30] MEDS ORDERED: Glucagon 1 MG/ML KIT IM PRN (05:04)
[2024-07-30] MEDS ORDERED: Dextrose 5% in Water 1,000 ML IV PRN (05:04)
[2024-07-30] MEDS ORDERED: Insulin Lispro 100 UNIT/ML 10 ML VIAL SC PRN ×2 (05:04)
[2024-07-30] MEDS ORDERED: Dextrose 50% Abboject 50 ML SYRINGE SLOW IVP PRN (05:04)
[2024-07-30 05:45] LABS: #Basophils Less than 0.03 10x3/uL (0.0-0.2); %Basophils 0.2 % (0.0-1.0); %Eosinophils 0.7 % (0.0-10.0); %Lymphocytes 22.7 % (21.0-51.0); Hematocrit 37.9 % (36.0-47.0); Hemoglobin 11.6 g/dL (12.0-16.0); Mean Corpuscular HGB CONC 30.6 g/dL (32.0-36.0); Mean Corpuscular Hemoglobin 29.6 pg (27.0-31.0); Mean Corpuscular Volume 96.7 fL (78.0-98.0); Platelet Count 157 10x3/uL (130-400); RBC Distribution Width 14.8 % (11.5-14.5); Red Blood Cell (RBC) Count 3.92 mill/uL (4.20-5.40)
[2024-07-30 06:06] LABS: Anion Gap 13 mmol/L (10-20); BUN (Urea Nitrogen) 9 mg/dL (9.8-20.1); Calc. Creatinine Clearance 110 mL/min (70-130); Calcium 8.3 mg/dL (7.8-10.44); Carbon Dioxide 24 mmol/L (23-31); Chloride 103 mmol/L (98-107); Estimated GFR 90; Glucose 129 mg/dL (83-110); Potassium 3.8 mmol/L (3.5-5.1); Sodium 136 mmol/L (136-145)
[2024-07-30] MEDS: FLU (Fluad Triv) TS24-25 (65UP)/MF59C/PF 45 MCG/0.5 ML Syringe IM ONE (07:06)
[2024-07-30] MEDS: Donepezil HCl 10 MG TAB PO SCH ×2 (12:12→20:05)
[2024-07-30] MEDS: Lithium Carbonate 300 MG ER.TAB PO SCH (12:12)
[2024-07-30] MEDS: QUEtiapine 200 MG TAB PO SCH ×2 (12:14→20:05)
[2024-07-30] MEDS: Acetaminophen 325 MG TAB PO PRN (15:53)
[2024-07-30] MEDS: cefTRIAXone\\ROCEPHIN 1 GM in Sodium Chloride 0.9% 100 ML IVPB SCH (15:53)
[2024-07-30] MEDS ORDERED: cefTRIAXone\\ROCEPHIN 1 GM in Sodium Chloride 0.9% 100 ML IVPB SCH (16:00)
[2024-07-30] MEDS: Levothyroxine Sodium 75 MCG TAB PO SCH (20:05)
[2024-07-30] MEDS: OXcarbazepine 300 MG TAB PO SCH (20:05)
[2024-07-30] MEDS: Simvastatin 5 MG TAB PO SCH (20:05)
[2024-07-30] MEDS: Pantoprazole 40 MG DR.TAB PO SCH (20:06)
[2024-07-31 06:12] LABS: #Basophils Less than 0.03 10x3/uL (0.0-0.2); %Basophils 0.6 % (0.0-1.0); %Eosinophils 4.2 % (0.0-10.0); %Lymphocytes 41.6 % (21.0-51.0); %Monocytes 19.8 % (0.0-10.0); %Neutrophils 33.5 % (42.0-75.0); Hematocrit 40.2 % (36.0-47.0); Hemoglobin 12.1 g/dL (12.0-16.0); Mean Corpuscular HGB CONC 30.1 g/dL (32.0-36.0); Mean Corpuscular Hemoglobin 29.4 pg (27.0-31.0); Mean Corpuscular Volume 97.6 fL (78.0-98.0); Mean Platelet Volume 9.2 fL (7.4-10.4); Platelet Count 157 10x3/uL (130-400); RBC Distribution Width 14.6 % (11.5-14.5); Red Blood Cell (RBC) Count 4.12 mill/uL (4.20-5.40)
[2024-07-31 07:22] LABS: Anion Gap 14 mmol/L (10-20); BUN (Urea Nitrogen) 12 mg/dL (9.8-20.1); Calc. Creatinine Clearance 99 mL/min (70-130); Calcium 8.3 mg/dL (7.8-10.44); Carbon Dioxide 24 mmol/L (23-31); Chloride 104 mmol/L (98-107); Estimated GFR 81; Glucose 109 mg/dL (83-110); Potassium 3.5 mmol/L (3.5-5.1); Sodium 138 mmol/L (136-145)
[2024-07-31] MEDS: Potassium Chloride 20 MEQ TAB PO SCH (08:32)
[2024-07-31] MEDS ORDERED: QUEtiapine 200 MG TAB PO SCH (09:00)
[2024-07-31] MEDS ORDERED: Non-Formulary Item 1 EACH (Lithium Carbonate [Lithium Carbonate] 300 MG Tablet) PO SCH (09:00)
[2024-07-31] MEDS: Benzonatate 100 MG CAP PO SCH ×2 (13:46→13:47)
[2024-08-01 09:32] LABS: #Basophils Less than 0.03 10x3/uL (0.0-0.2); %Basophils 0.6 % (0.0-1.0); %Eosinophils 4.4 % (0.0-10.0); %Lymphocytes 48.2 % (21.0-51.0); %Neutrophils 33.5 % (42.0-75.0); Hematocrit 37.7 % (36.0-47.0); Hemoglobin 11.4 g/dL (12.0-16.0); Mean Corpuscular HGB CONC 30.2 g/dL (32.0-36.0); Mean Corpuscular Hemoglobin 29.7 pg (27.0-31.0); Mean Corpuscular Volume 98.2 fL (78.0-98.0); Mean Platelet Volume 9.2 fL (7.4-10.4); Platelet Count 166 10x3/uL (130-400); RBC Distribution Width 14.5 % (11.5-14.5); Red Blood Cell (RBC) Count 3.84 mill/uL (4.20-5.40)
[2024-08-01 09:48] LABS: Anion Gap 13 mmol/L (10-20); BUN (Urea Nitrogen) 12 mg/dL (9.8-20.1); Calc. Creatinine Clearance 94 mL/min (70-130); Calcium 8.4 mg/dL (7.8-10.44); Carbon Dioxide 25 mmol/L (23-31); Chloride 106 mmol/L (98-107); Estimated GFR 76; Glucose 147 mg/dL (83-110); Potassium 3.7 mmol/L (3.5-5.1); Sodium 140 mmol/L (136-145)
[2024-08-02 16:30] VITALS: BP 133/81; TEMP 97.8
== END 2024-08-02 19:46 | disposition home or self-care (01) | DRG 689 ==
LOC: ERS 12:44 → T4-A 17:34 → OBSVTOIN 07-30 09:06
PROVIDERS: ADMIT Student in an Organized Health Care Education/Training Program; ATTEND Internal Medicine
DX: N39.0 Urinary tract infection, site not specified (principal); G93.41 Metabolic encephalopathy; F31.9 Bipolar disorder, unspecified; E03.9 Hypothyroidism, unspecified; E11.9 Type 2 diabetes mellitus without complications; I10 Essential (primary) hypertension; J10.1 Influenza due to other identified influenza virus with other respiratory manifestations; G20.A1 Parkinson's disease without dyskinesia, without mention of fluctuations; F02.80 Dementia in other diseases classified elsewhere, unspecified severity, without behavioral disturbance, psychotic disturbance, mood disturbance, and anxiety; E78.5 Hyperlipidemia, unspecified; B96.20 Unspecified Escherichia coli [E. coli] as the cause of diseases classified elsewhere; M19.90 Unspecified osteoarthritis, unspecified site; Z96.653 Presence of artificial knee joint, bilateral; Z88.8 Allergy status to other drugs, medicaments and biological substances; Z88.5 Allergy status to narcotic agent; Z90.49 Acquired absence of other specified parts of digestive tract; Z98.890 Other specified postprocedural states; Z90.89 Acquired absence of other organs
CPT/HCPCS: 36415; 36416; 70450; 71045; 80048; 80053; 81001; 82550; 83605; 83690; 83735; 84145; 84484; 85025; 87040; 87077; 87086; 87186; 87428; 93005; 96372; G0378; J0696; J1644